=== PATIENT | male | born 1965 | race Caucasian/White ===

== ENCOUNTER 2019-04-24 20:53 | Emergency (ER) | payer OTHER ==
[~2019-04-24] VITALS: Ht 177.8 cm; Wt 86.4 kg
[2019-04-24] MEDS ORDERED: OXYB5TAB2 PO (22:07)
[2019-04-24] MEDS ORDERED: MELO15TA28 PO (22:07)
[2019-04-24] MEDS ORDERED: ROSU40TA4 PO (22:07)
[2019-04-24] MEDS ORDERED: OMEP-218 PO (22:07)
[2019-04-24] MEDS ORDERED: ASPI81TA26 PO (22:07)
[2019-04-24] MEDS ORDERED: IBUPROFEN 800 MG TAB PO ONE (22:45)
[2019-04-24 22:57] VITALS: BP 140/92
--- NOTE | 2019-04-25 07:36 | REP ---
Clinical: Trauma. Fall. Technique: Internal rotation, external rotation, and Y view right shoulder . Findings: No acute fracture or dislocation. The acromioclavicular and glenohumeral joints are intact. No periarticular calcifications or degenerative changes are appreciated. Sub acromial space is normal. Surrounding soft tissues are unremarkable. Impression: Normal right shoulder radiographs. No acute fracture or dislocation. Electronically Signed by Rowdy Amaya MD 04/25/2019 07:28 A
== END 2019-04-24 22:59 | disposition home or self-care (01) ==
LOC: M ED 20:53
DX: S40.211A Abrasion of right shoulder, initial encounter (principal); S40.011A Contusion of right shoulder, initial encounter; W22.8XXA Striking against or struck by other objects, initial encounter; Y92.89 Other specified places as the place of occurrence of the external cause; Y93.9 Activity, unspecified; Y99.0 Civilian activity done for income or pay; E78.5 Hyperlipidemia, unspecified; Z79.82 Long term (current) use of aspirin; Z79.899 Other long term (current) drug therapy

== ENCOUNTER → 2021-01-08 | Outpatient (CLI) | payer OTHER ==
[~2021-01-08] MED LIST: ASPI81TA26 PO; MELO15TA28 PO; OMEP-218 PO; OXYB-54 PO; ROSU40TA4 PO
--- NOTE | 2021-01-12 15:18 | SLEEPCENT ---
DATE: 01/08/2021 ORDERED BY: Amaury Beltran MD Nocturnal polysomnography was performed for evaluation of sleep physiology. Seven hours and 52 minutes of data were reviewed. There were 423 minutes of sleep identified. Sleep latency was normal at 11.5 minutes. REM latency was delayed at 166.5 minutes. Sleep architecture showed initial fragmentation. Improvement was seen later in the study and there were three REM cycles noted. Overall sleep efficiency was 90.7%. The electrocardiogram showed a sinus rhythm with an average heart rate of 55 beats per minute. Rate ranged 45-70. EEG showed normal waveforms for wake and sleep. There were 32 respiratory events identified of 10 seconds in duration or greater for an apnea-hypopnea index of 5.6. The events were not exclusive to sleep stage nor to body position. Arousals from respiratory events occurred 2 times per hour, and oxygen desaturations remained 90%+. There was some minor limb activity noted. Two trains of 30 events. Limb movement arousal index 8.4. IMPRESSIONS: 1. Mild obstructive sleep apnea syndrome (G47.33). Apnea-hypopnea index 5.6. 2. Borderline periodic limb movement disorder (G47.61). Limb movement arousal index 8.4. RECOMMENDATION: Pending significant sleep symptoms, the patient may benefit from referral back to [facility] for pressure therapy. In the interim, alcohol and sedative avoidance should be practiced and caution exercised during the operation of motor vehicles. Should the patient's sleep symptoms persist, interventions to reduce the frequency of arousal from limb activity may also be helpful.
== END ==
LOC: M SLEEP 20:00
PROVIDERS: ATTEND Internal Medicine
DX: G47.33 Obstructive sleep apnea (adult) (pediatric) (principal); G47.61 Periodic limb movement disorder